=== PATIENT | female | born 1995 | race African-American/Black ===

== ENCOUNTER 2024-03-05 09:10 | Day surgery (SDC) | payer OTHER ==
[2024-03-05 16:33] VITALS: BP 123/66; TEMP 98.2
== END 2024-03-05 16:33 | disposition home or self-care (01) ==
LOC: ONC/OP 09:10
PROVIDERS: ATTEND Family Medicine
DX: O99.019 Anemia complicating pregnancy, unspecified trimester (principal); Z3A.00 Weeks of gestation of pregnancy not specified; Z91.018 Allergy to other foods
CPT/HCPCS: 96365; 96366; 96375; J1200; J1756; J7050